=== PATIENT | female | born 1935 | race Caucasian/White ===

== ENCOUNTER → 2016-08-15 | Outpatient (CLI) | payer MEDICARE, MEDICAID ==
[~2016-08-15] MED LIST: ANTIVERT-DPS25 MG PO; CALCIUM WITH V1 EAC1 PO; CRESTOR10 MG PO; FENOFIBRATE145 MG PO; FOLVITE-DPS1 MG PO; GLUCOPHAGE-DPS500 MG PO; HYDROCODONE 10M10 MG PO; INDOMETHACIN75 MG PO; LASIX DPS20 MG PO; LEVOTHYROXINE75 MCG PO; MULTI-DAY VITA1 EACH PO; NORVASC DPS10 MG PO; OMEGA-3 DPS1000 MG PO; POTASSIUM CHLO10 ME1 PO; PRILOSEC DPS20 MG PO; SURFAK240 MG PO; TENORMIN DPS50 MG PO; TYLENOL DPS325 MG PO; ZYLOPRIM-DPS300 MG PO
== END | disposition home or self-care (01) ==
LOC: RAD.S 14:30
DX: Z13.820 Encounter for screening for osteoporosis (principal); M85.89 Other specified disorders of bone density and structure, multiple sites; Z78.0 Asymptomatic menopausal state